=== PATIENT | female | born 1990 | race Caucasian/White ===

== ENCOUNTER 2022-09-13 12:24 | Emergency (ER) | payer BC ==
[~2022-09-13] VITALS: Ht 162.6 cm; Wt 54.4 kg
[2022-09-13 12:30] VITALS: BP 120/84
--- NOTE | 2022-09-13 12:32 | NUR ---
THROAT DISCOMFORT/PAIN X 2 DAYS
[2022-09-13] MEDS ORDERED: AMOX875T2 PO (13:00)
[2022-09-13] MEDS ORDERED: DEXAMETHASONE 1 MG TABLET PO ONE (13:00)
[2022-09-13] MEDS ORDERED: DEXAMETHASONE 1 MG TABLET ONE (13:14)
[2022-09-13] MEDS ORDERED: DEXAMETHASONE 4 MG TABLET ONE (13:15)
--- NOTE | 2022-09-13 13:22 | NUR ---
Patient discharged to home in stable condition. Written and verbal after care instructions given. Patient verbalizes understanding of instruction.
[2022-09-13] MEDS ORDERED: PENICILLIN G BENZATHINE 2.4 MMU/4 ML ML IM ONE ×2 (13:30→13:56)
--- NOTE | 2022-09-13 14:06 | NUR ---
BICLLIN I-A 1.2 [facility] IM GIVEN TOLORATED PROCEDDURE NO ADVANCE REACTION
== END 2022-09-13 13:22 | disposition home or self-care (01) ==
LOC: ER 12:36
DX: J02.0 Streptococcal pharyngitis (principal); J04.0 Acute laryngitis
CPT/HCPCS: 99283; 96372; 87880; J0558; J8540 ×2; 86403-TC